=== PATIENT | female | born 1985 | race Caucasian/White ===

== ENCOUNTER 2020-12-10 17:01 | Inpatient (IN) ==
[2020-12-10] MEDS ORDERED: SODIUM CHLORIDE 0.9% 500 ML IV ONE (17:27)
[2020-12-10] MEDS ORDERED: dexAMETHasone**PF** 10 MG/ML VIAL IV ONE (17:27)
--- NOTE | 2020-12-10 17:32 | Emergency Department Note ---
Impression & Plan Hypoxia, COVID-19, Pneumonia ED Provider Note NAME: TEJINDER BELTARN AGE: 35 SEX: F : 1985 ARRIVES VIA: Walk-In INFORMANT: Patient ED PROVIDER(S): García Harkins DO CHIEF COMPLAINT: Shortness of breath HPI: Patient is a 35-year-old unvaccinated who presents the ER for shortness of breath associated with cough and loss of taste. She has had intermittent f shimon. Her significant other is positive for Covid. She has not been tested. She denies any belly pain but admits to diarrhea. No vomiting but does have some nausea. No dysuria urgency or frequency. No other exacerbating or remitting factors. ROS: See above HPI for pertinent positives & negatives. A total of 10 systems reviewed and were otherwise negative. PAST MEDICAL HISTORY:See Below PAST SURGICAL HISTORY:See Below FAMILY HISTORY:See Below SOCIAL HISTORY:See Below HOME MEDICATIONS:See Below ALLERGIES:See Below VITALS:See Below PHYSICAL EXAMINATION: GENERAL: Sitting up in bed, alert, slightly ill-appearing, cough EYE EXAM: normal conjunctiva. PERRL and EOM's grossly intact. OROPHARYNX: mask in place LUNGS: Clear to auscultation. Normal chest wall mechanics HEART: no murmurs, S1 normal and S2 normal ABDOMEN: abdomen soft, non-tender, normo-active bowel sounds, no masses, no rebound or guarding. UPPER EXTREMITIES: upper extremities are grossly normal. LOWER EXTREMITIES: No pitting edema. NEURO EXAM: Normal sensorium, cranial nerves II-XII grossly intact, normal speech, no gross weakness of arms, no gross weakness of legs. No drift. Finger to nose intact. Gross sensation intact. MEDICAL DECISION MAKING: Patient is a 35-year-old female who presents ER for upper respiratory symptoms. IV was established blood work was obtained. She is found to be hypoxic and placed on 2 L nasal cannula. She is febrile and tachycardic as well. Labs show no significant leukocytosis or anemia. BMP with mild hyponatremia. LFTs bilirubin and lipase is unremarkable. Troponin was negative. Patient was Covid positive. Chest x-ray with bilateral infiltrates. Patient was given Decadron, fluids and updated at bedside. She remained on nasal cannula. Discussed with hospitalist admitted for further work-up. Triage Nursing notes reviewed. Limited review of prior medical records performed Vital Signs: reviewed and remarkable for febrile, tachycardic and hypoxic Differential diagnosis: Differential diagnoses includes but is not limited to pneumonia, bronchitis, COPD/Asthma exacerbation, pneumothorax, pulmonary embolism, congestive heart failure, acute coronary syndrome ER treatment provided: See below Diagnostics interpreted by me: ECG: Sinus tachycardia rate of 115 Normal axis T wave inversion lead III QTC 415 Cardiac Monitoring: An order was placed for continuous cardiac monitoring. The monitor shows a rate of 110 with sinus rhythm. Laboratory studies: As stated above and show below. Imaging studies: Portable AP upright 1 view of the chest shows bilateral infiltrate Consultation(s): Discussed with Dr. Romero for further evaluation Procedures: none Critical Care: I have personally spent 32 minutes of critical care time in the direct management of this patient. This includes bedside care, interpretation of diagnostic studies, and testing, discussion with consultants, patient, and family members, and other required patient management activities. This 32 minutes is in excess of all separately billable procedures. Past Med/Surg History Social History Smoking Status: Never smoker Preferred Language: [place] Feels Safe at Home: Yes Allergies Allergies Allergy/AdvReac Type Severity Reaction Status Date / Time No Known Allergies Allergy Unverified 12/10/20 21:20 Home Meds Home Medications Medication Instructions Recorded Confirmed No Known Home Medications 12/10/20 12/10/20 Results & Data (ED) Vital Signs Vital Signs - 24 hr 12/10/20 17:05 12/10/20 18:02 12/10/20 21:04 Temperature 37.8 C H Temperature Source Temporal Artery Scan Pulse Rate 131 H Pulse Rate [Left] 114 H 101 H Pulse Rhythm [Left] Regular Pulse Strength [Left] Normal Respiratory Rate 24 24 Respiratory Effort / Characteristics Non-Labored Respiratory Depth Normal Blood Pressure 131/85 Blood Pressure [Right Arm] 126/87 135/83 Blood Pressure Mean 100 Blood Pressure Mean [Right Arm] 100 100 Blood Pressure Position [Right Arm] Lying Pulse Oximetry 94 97 94 Oxygen Delivery Method Nasal Cannula Nasal Cannula Nasal Cannula Oxygen Flow Rate 2 3 2 Sepsis Recent Fever Within 48 Hours Yes Sepsis New/Unexplained Change in Mental Status No Sepsis Action Taken by Nursing No Action Required Laboratory Data Result diagrams: 12/10/20 17:40 12/10/20 17:40 Lab Results 12/10/20 12/10/20 12/10/20 Range/Units 17:40 17:40 17:40 WBC 6.53 (4.8-10.8) K/uL RBC 4.53 (4.2-5.4) M/uL Hgb 14.4 (12.0-16.0) g/dL Hct 41.4 (37-47) % MCV 91.4 (80-100) fL MCH 31.8 (25-34) pg MCHC 34.8 (32-36) g/dL RDW Std Deviation 42.2 (36.4-46.3) fL RDW Coeff of Mary 12.6 (11.5-14.5) % Plt Count 188 (130-400) K/uL MPV 10.8 H (7.4-10.4) fL Immature Gran % (Auto) 0.3 % Neut % (Auto) 67.2 % Lymph % (Auto) 19.9 % [place] % (Auto) 12.4 % Eos % (Auto) 0.0 % Baso % (Auto) 0.2 % Neut # (Auto) 4.39 (1.4-6.5) K/uL Lymph # (Auto) 1.30 (1.2-3.4) K/uL [place] # (Auto) 0.81 H (0.11-0.59) K/uL Eos # (Auto) 0.00 (0-0.5) K/uL Baso # (Auto) 0.01 (0-0.2) K/uL Immature Gran # (Auto) 0.02 (0.00-0.02) K/uL APTT 26.5 (21.0-31.0) Seconds PTT Ratio 1.0 Sodium 132 L (136-145) mmol/L Potassium 3.7 (3.5-5.1) mmol/L Chloride 101 (98-107) mmol/L Carbon Dioxide 24 (21-32) mmol/L Anion Gap 7.0 (3-11) BUN 7 (7-18) mg/dl Creatinine 0.70 (0.6-1.2) mg/dl Est Cr Clr Drug Dosing 115.1 ml/min Est GFR ( Amer) 130.1 ml/min Est GFR (Non-Af Amer) 112.3 ml/min BUN/Creatinine Ratio 9.3 L (10-20) Glucose 101 H (70-99) mg/dl Calcium 8.7 (8.5-10.1) mg/dl Total Bilirubin 0.5 (0.2-1) mg/dl AST 39 H (15-37) U/L ALT 40 (12-78) U/L Alkaline Phosphatase 43 L (45-117) U/L Troponin I < 0.015 (0-0.045) ng/ml Total Protein 7.7 (6.4-8.2) gm/dl Albumin 3.1 L (3.4-5.0) gm/dl Globulin 4.6 H (2.5-4.0) gm/dl Albumin/Globulin Ratio 0.7 L (0.9-2) Lipase 342 (73-393) U/L COVID-19 Eval Order SARS-CoV-2 (PCR) (Negative) 12/10/20 12/10/20 Range/Units 17:45 17:45 WBC (4.8-10.8) K/uL RBC (4.2-5.4) M/uL Hgb (12.0-16.0) g/dL Hct (37-47) % MCV (80-100) fL MCH (25-34) pg MCHC (32-36) g/dL RDW Std Deviation (36.4-46.3) fL RDW Coeff of Mary (11.5-14.5) % Plt Count (130-400) K/uL MPV (7.4-10.4) fL Immature Gran % (Auto) % Neut % (Auto) % Lymph % (Auto) % [place] % (Auto) % Eos % (Auto) % Baso % (Auto) % Neut # (Auto) (1.4-6.5) K/uL Lymph # (Auto) (1.2-3.4) K/uL [place] # (Auto) (0.11-0.59) K/uL Eos # (Auto) (0-0.5) K/uL Baso # (Auto) (0-0.2) K/uL Immature Gran # (Auto) (0.00-0.02) K/uL APTT (21.0-31.0) Seconds PTT Ratio Sodium (136-145) mmol/L Potassium (3.5-5.1) mmol/L Chloride (98-107) mmol/L Carbon Dioxide (21-32) mmol/L Anion Gap (3-11) BUN (7-18) mg/dl Creatinine (0.6-1.2) mg/dl Est Cr Clr Drug Dosing ml/min Est GFR ( Amer) ml/min Est GFR (Non-Af Amer) ml/min BUN/Creatinine Ratio (10-20) Glucose (70-99) mg/dl Calcium (8.5-10.1) mg/dl Total Bilirubin (0.2-1) mg/dl AST (15-37) U/L ALT (12-78) U/L Alkaline Phosphatase (45-117) U/L Troponin I (0-0.045) ng/ml Total Protein (6.4-8.2) gm/dl Albumin (3.4-5.0) gm/dl Globulin (2.5-4.0) gm/dl Albumin/Globulin Ratio (0.9-2) Lipase (73-393) U/L COVID-19 Eval Order Covid19 at [facility] SARS-CoV-2 (PCR) POSITIVE A* (Negative) Administered Medications Discontinued Medications Dexamethasone Sodium Phosphate (DexamethasonePf 10 Mg/Ml Vial) 8 mg IV NOW ONE Stop: 12/10/20 17:28 Last Admin: 12/10/20 17:46 Dose: 8 mg Documented by: [id number] Sodium Chloride (Nss) 500 mls @ 999 mls/hr IV .Q31M ONE Stop: 12/10/20 17:57 Last Infusion: 12/10/20 20:23 Dose: 0 mls/hr Documented by: [id number] Admin: 12/10/20 17:50 Dose: 999 mls/hr Documented by: [id number] Imaging Data Radiologist's Impression: Chest X-Ray 12/10/20 17:26 XR chest 1V portable HISTORY: Atypical Chest Pain COMPARISON: None. FINDINGS: No pneumothorax. No pleural effusions. The cardiac silhouette is normal in size. There are patchy bilateral airspace opacities most mass within the mid to lower lung zones. This likely represents a viral pneumonia. IMPRESSION: Patchy bilateral airspace opacities. This likely represents a viral pneumonia. ACT 112: Negative or not required by law. Electronically signed by: Anup Dyson M.D. 12/10/2020 6:17 PM Discharge Plan Visit Data Chief Complaint: Shortness of Breath/Dyspnea Stated Complaint: SHORTNESS OF BREATH, COUGH ED Provider: García Harkins Discharge Problem: Hypoxia, COVID-19, Pneumonia Forms Stand Alone Forms: M.dot Prescriptions Prescriptions: No Action No Known Home Medications RF: 0 Referrals Referrals: PCP,NO [Physician] - Discharge Problem: Pneumonia Qualifiers: Pneumonia type: due to unspecified organism Laterality: bilateral Lung location: unspecified part of lung Qualified Code(s): J18.9 - Pneumonia, unspecified organism
[2020-12-10 18:08] LABS: Hematocrit (blood only) 41.4 % (37-47); Hemoglobin 14.4 g/dL (12.0-16.0); Mean Corpuscular Hemoglobin 31.8 pg (25-34); Mean Corpuscular Hgb Conc 34.8 g/dL (32-36); Mean Corpuscular Volume 91.4 fL (80-100); Mean Platelet Volume 10.8 fL (7.4-10.4); Platelet Count 188 K/uL (130-400); RDW Coefficient of Variation 12.6 % (11.5-14.5); RDW Standard Deviation 42.2 fL (36.4-46.3); Red Blood Count 4.53 M/uL (4.2-5.4); White Blood Count 6.53 K/uL (4.8-10.8)
--- NOTE | 2020-12-10 18:18 | XRay Report ---
XR chest 1V portable HISTORY: Atypical Chest Pain COMPARISON: None. FINDINGS: No pneumothorax. No pleural effusions. The cardiac silhouette is normal in size. There are patchy bilateral airspace opacities most mass within the mid to lower lung zones. This likely represe nts a viral pneumonia. IMPRESSION: Patchy bilateral airspace opacities. This likely represents a viral pneumonia. ACT 112: Negative or not required by law. Electronically signed by: Anup Dyson M.D. 12/10/2020 6:17 PM
[2020-12-10 18:23] LABS: Partial Thromboplastin Time 26.5 Seconds (21.0-31.0)
[2020-12-10 18:39] LABS: Alanine Aminotransferase 40 U/L (12-78); Albumin Level 3.1 gm/dl (3.4-5.0); Aspartate Aminotransferase 39 U/L (15-37); BUN Creatinine Ratio 9.3 (10-20); Blood Urea Nitrogen 7 mg/dl (7-18); Calcium 8.7 mg/dl (8.5-10.1); Carbon Dioxide 24 mmol/L (21-32); Chloride 101 mmol/L (98-107); Creatinine Clr Calc Pharmacy 115.1 ml/min; Est GFR (African American) 130.1 ml/min; Est GFR (Non-African American) 112.3 ml/min; Glucose 101 mg/dl (70-99); Lipase 342 U/L (73-393); Potassium 3.7 mmol/L (3.5-5.1); Sodium 132 mmol/L (136-145)
[2020-12-10 18:44] LABS: Albumin Globulin Ratio 0.7 (0.9-2); Alkaline Phosphatase 43 U/L (45-117); Bilirubin,Total 0.5 mg/dl (0.2-1); Globulin 4.6 gm/dl (2.5-4.0); Total Protein 7.7 gm/dl (6.4-8.2); Troponin I < 0.015 ng/ml (0-0.045)
[2020-12-10 18:47] LABS: Basophils # (auto) 0.01 K/uL (0-0.2); Basophils % (auto) 0.2 %; Immature Granulocytes # (auto) 0.02 K/uL (0.00-0.02); Immature Granulocytes % (auto) 0.3 %; Lymphocytes % (auto) 19.9 %; Monocytes # (auto) 0.81 K/uL (0.11-0.59); Monocytes % (auto) 12.4 %; Neutrophils # (auto) 4.39 K/uL (1.4-6.5); Neutrophils % (auto) 67.2 %
[2020-12-10] MEDS ORDERED: REMDESIVIR 200 MG in SODIUM CHLORIDE 0.9% 210 ML IV STA (21:34)
--- NOTE | 2020-12-10 22:25 | History and Physical Report ---
DATE OF NOTE: 12/10/2020. CHIEF COMPLAINT: COVID pneumonia. HISTORY OF PRESENT ILLNESS: This is a 35-year-old female with past medical history significant for chronic rhinitis, history of anxiety and depression, currently not taking any medication, presents with COVID symptoms. Patient's significant other was tested COVID positive and she started having symptoms last Monday with headache, cough, shortness of breath, on and off fevers and she had few episodes of diarrhea. Today she was checking her pulse ox at home and her oxygen was ranging from 83-89% when she decided to come to the ER. In the ER, she was saturating 88% on room air, on 2 liters she was saturating 94%, currently resting comfortably. Has cough. Denies any chest pain, no blurred visions, some ear discomfort. She has some runny nose. Appetite is very poor. No difficulty swallowing. Was nauseous. No abdominal pain. No rash. No swelling in the legs. ALLERGIES: No known drug allergies. PAST MEDICAL HISTORY: As mentioned above. PAST SURGICAL HISTORY: Has molars removed. MEDICATIONS: None. FAMILY HISTORY: Paternal grandfather had heart disorder in 40s or 50s. Maternal grandfather had high cholesterol. Aunt has breast cancer. SOCIAL HISTORY: , no smoking, alcohol rare. REVIEW OF SYSTEMS: As per HPI. Rest of the review of systems is negative. PHYSICAL EXAMINATION: GENERAL: The patient is of moderate build, not in acute distress. VITAL SIGNS: Temperature T-max 37.8, pulse 101, respiratory rate 24, blood pressure 135/83, oxygen 88% on room air, 94% on 2 liters. HEENT: Pupils equal, round and reactive to light. Oral mucosa moist. NECK: No JVD. No neck masses seen. CARDIOVASCULAR: S1 and S2 heard. Regular rate and rhythm. No murmur, no gallop. RESPIRATORY SYSTEM: Normal AP diameter. No accessory muscle use. No wheezing, no crackles. ABDOMEN: Soft, bowel sounds present, nontender, no distention. CENTRAL NERVOUS SYSTEM: Cranial nerves II-XII grossly intact, nonfocal. EXTREMITIES: No edema, no erythema. LABORATORY DATA: WBC 6.4, hemoglobin 14.4, hematocrit 41.4, platelets 188. APTT 26.5, PTT 1. Sodium 132, potassium 3.7, chloride 101, bicarbonate 24, BUN 37, creatinine 0.7, serum glucose 101, calcium 8.7, total bilirubin 0.5, AST 39, ALT 40, alkaline phosphatase 43. Troponin I less than 0.015. Lipase 3.2. SARS-CoV-2 PCR positive. IMAGING DATA: Chest x-ray had patchy bilateral airspace opacities, this likely represents viral pneumonia. EKG: Sinus tachycardia at rate of 115,possible left atrial enlargement. ASSESSMENT AND PLAN: This is a 35-year-old female who presents with COVID pneumonia. 1. COVID pneumonia. Hypoxic at 88% on room air, requiring 2 liters of oxygen. Meets criteria for remdesivir and steroids, which will be started. Follow remdesivir labs. Follow the CRP in a.m. inhalers p.r.n. and closely monitor in the med tele. 2. h x of anxiety currently not on meds. Takes BuSpar once in a while 3. Deep venous thrombosis prophylaxis with Lovenox. DISPOSITION: Closely monitor in med tele. PT/OT prior to discharge. Social service to help with discharge planning. Job ID: [id number] [facility]
[2020-12-10] MEDS ORDERED: LEVALBUTEROL TARTRATE 15 GM HFA.AER.AD INH PRN (23:37)
[2020-12-10] MEDS ORDERED: SODIUM CHLORIDE 0.9% 1000ML 1,000 ML IV SCH (23:37)
[2020-12-10] MEDS ORDERED: ACETAMINOPHEN 325 MG TAB PO PRN (23:37)
[2020-12-10] MEDS ORDERED: ONDANSETRON INJ 2 MG/ML 2 ML VIAL IV PRN (23:37)
[2020-12-10] MEDS ORDERED: NITROGLYCERIN SL 0.4 MG/TAB TAB SL PRN (23:37)
[2020-12-11] MEDS: SODIUM CHLORIDE 0.9% 10ML FLUSH IV SCH ×2 (02:03→22:34)
[2020-12-11 05:51] LABS: Basophils # (auto) 0.01 K/uL (0-0.2); Basophils % (auto) 0.2 %; Hematocrit (blood only) 39.7 % (37-47); Hemoglobin 13.6 g/dL (12.0-16.0); Lymphocytes # (auto) 1.26 K/uL (1.2-3.4); Lymphocytes % (auto) 31.3 %; Mean Corpuscular Hemoglobin 31.4 pg (25-34); Mean Corpuscular Hgb Conc 34.3 g/dL (32-36); Mean Corpuscular Volume 91.7 fL (80-100); Mean Platelet Volume 10.3 fL (7.4-10.4); Monocytes # (auto) 0.61 K/uL (0.11-0.59); Monocytes % (auto) 15.1 %; Neutrophils # (auto) 2.15 K/uL (1.4-6.5); Neutrophils % (auto) 53.4 %; Platelet Count 193 K/uL (130-400); RDW Coefficient of Variation 12.5 % (11.5-14.5); RDW Standard Deviation 42.4 fL (36.4-46.3); Red Blood Count 4.33 M/uL (4.2-5.4); White Blood Count 4.03 K/uL (4.8-10.8)
[2020-12-11 06:22] LABS: Albumin Level 2.7 gm/dl (3.4-5.0); BUN Creatinine Ratio 15.4 (10-20); Bilirubin Direct 0.1 mg/dl (0-0.2); Calcium 8.2 mg/dl (8.5-10.1); Creatinine Clr Calc Pharmacy 152.1 ml/min; Est GFR (African American) 142.6 ml/min; Magnesium 2.5 mg/dl (1.8-2.4); Potassium 4.1 mmol/L (3.5-5.1)
[2020-12-11 06:25] LABS: Bilirubin,Total 0.4 mg/dl (0.2-1); C Reactive Protein 5.11 mg/dl (0-0.29)
[2020-12-11] MEDS: FLUTICASONE FUROATE 100MCG 14 PUFFS/INHALER INH SCH (09:21)
[2020-12-11] MEDS: ENOXAPARIN INJ 40 MG/0.4 ML SYR SQ SCH (09:21)
[2020-12-11] MEDS: dexAMETHasone 6 MG in SYRINGE 0 ML IV SCH (09:28)
--- NOTE | 2020-12-11 15:30 | Electrocardiogram Report ---
Test Reason : Blood Pressure : / mmHG Vent. Rate : 115 BPM Atrial Rate : 115 BPM P-R Int : 120 ms QRS Dur : 082 ms QT Int : 300 ms P-R-T Axes : 063 033 024 degrees QTc Int : 415 ms Sinus tachycardia Possible Left atrial enlargement Borderline ECG No previous ECGs available Confirmed by Miguelito Calhoun ([id number]) on 12/11/2020 3:30:13 PM Referred By: REFERRED SELF Confirmed By:Miguelito Calhoun
--- NOTE | 2020-12-11 15:32 | Hospitalist Progress Note ---
Date of Service December 11, 2020 Assessment & Plan (1) COVID-19: Plan: Did not receive any Covid vaccine On and off symptoms of fever and diarrhea with desaturation at home Diagnosed to have COVID-19 positive Has been on dexamethasone and remdesivir Requiring about 2 L of oxygen to maintain saturation Noted to have diarrhea this morning we will get stool for C. difficile (2) Pneumonia: Plan: Secondary to COVID-19 Treatment is as above (3) Anxiety with depression: Plan: Has symptoms of anxiety and depression Nothing acute at this time DVT prophylaxis Subcu Lovenox CODE STATUS Full Admission and Anticipated Discharge Date Admission Date: December 10, 2020 Subjective 12/11/2020 The patient was seen and examined in medical telemetry unit and in the Covid room She has been feeling a little better today Has had diarrhea x2, denies any abdominal pain, nausea no vomiting Review of Systems Review of Systems: All systems reviewed and are unremarkable except as noted below Respiratory: Minimal shortness of breath at rest Physical Exam Physical Exam: Lying in bed comfortably Constitutional: well developed, well nourished, + ill appearing and + obese Eyes: PERRL, conjunctivae normal, anicteric sclerae ENMT: external ear and nose normal, oropharynx normal Neck: trachea midline, no thyromegaly Respiratory: + respiratory distress (Minimal shortness of breath at rest) and + cough Auscultation: + diminished lung sounds Cardiovascular: Rate/Rhythm: regular rate and regular rhythm; not tachycardic Heart Sounds: normal S1 and normal S2; no murmur Extremities: no edema Gastrointestinal (Abdomen): Inspection/Auscultation: normal bowel sounds; abdomen not distended Percussion/Palpation: abdomen soft; abdomen nontender Musculoskeletal: No acute arthritis in any joint Neurologic: Alert, awake and oriented x3. No focal sensory no motor deficit appreciated Results & Data Results & Data ([facility]) Vital Signs (Past 12 Hours) Vital Signs Temp Pulse Pulse Resp BP Pulse Ox 12/11/20 12:00 36.8 C 95 H 16 123/83 93 12/11/20 08:00 37.1 C 94 H 24 114/73 90 12/11/20 06:20 80 Laboratory Results Short CBC 12/10/20 12/11/20 Range/Units 17:40 05:33 WBC 6.53 4.03 L (4.8-10.8) K/uL Hgb 14.4 13.6 (12.0-16.0) g/dL Hct 41.4 39.7 (37-47) % Plt Count 188 193 (130-400) K/uL BMP 12/10/20 12/11/20 17:40 05:33 Sodium 132 L 136 Potassium 3.7 4.1 Chloride 101 109 H Carbon Dioxide 24 23 BUN 7 8 Creatinine 0.70 0.53 L Glucose 101 H 126 H Calcium 8.7 8.2 L Cardiac Enzymes 12/10/20 Range/Units 17:40 Troponin I < 0.015 (0-0.045) ng/ml Liver Function 12/10/20 12/11/20 Range/Units 17:40 05:33 Total Bilirubin 0.5 0.4 (0.2-1) mg/dl Direct Bilirubin 0.1 (0-0.2) mg/dl AST 39 H 35 (15-37) U/L ALT 40 38 (12-78) U/L Alkaline Phosphatase 43 L 37 L (45-117) U/L Albumin 3.1 L 2.7 L (3.4-5.0) gm/dl Medications Administered Current Inpatient Medications Acetaminophen (Acetaminophen 325 Mg Tab) 650 mg PO Q4H PRN PRN Reason: Pain or Fever Stop: 01/09/21 23:36 Enoxaparin Sodium (Enoxaparin Inj 40 Mg/0.4 Ml Syr) 40 mg SQ Q24H KAIA Stop: 01/10/21 08:59 Last Admin: 12/11/20 09:21 Dose: 40 mg Documented by: Fluticasone Furoate (Fluticasone Furoate 100mcg 14 Puffs/Inhaler) 1 puffs INH DAILY KAIA Stop: 01/10/21 08:59 Last Admin: 12/11/20 09:21 Dose: 1 puffs Documented by: Remdesivir 100 mg/ Sodium (Chloride) 250 mls @ 250 mls/hr IV Q24H KAIA; Protocol Stop: 12/14/20 20:59 Dexamethasone 6 mg/ Syringe 1.5 mls @ 1 mls/min IV DAILY KAIA Stop: 12/21/20 08:59 Last Admin: 12/11/20 09:28 Dose: 1 mls/min Documented by: Levalbuterol HCl (Levalbuterol Tartrate 15 Gm Hfa.Aer.Ad) 2 puffs INH QID PRN PRN Reason: Shortness Of Breath Or Wheezin Stop: 01/09/21 23:36 Nitroglycerin (Nitroglycerin Sl 0.4 Mg/Tab Tab) 0.4 mg SL UD PRN PRN Reason: Chest Pain Stop: 01/09/21 23:36 Ondansetron HCl (Ondansetron Inj 2 Mg/Ml 2 Ml Vial) 4 mg IV Q6H PRN PRN Reason: Nausea Stop: 01/09/21 23:36 Sodium Chloride (Sodium Chloride 0.9% 10ml Flush) 30 ml IV Q24H KAIA Stop: 12/14/20 23:38 Last Admin: 12/11/20 02:03 Dose: 30 ml Documented by: (1) Pneumonia Laterality: bilateral Lung location: unspecified part of lung Pneumonia type: due to unspecified organism Qualified Code(s): J18.9 - Pneumonia, unspecified organism
[2020-12-11] MEDS ORDERED: FUROSEMIDE 40 MG in SYRINGE 0 ML IV SCH (15:45)
[2020-12-11] MEDS: REMDESIVIR 100 MG in SODIUM CHLORIDE 0.9% 230 ML IV SCH (21:05)
[2020-12-12 07:07] LABS: Basophils # (auto) 0.01 K/uL (0-0.2); Basophils % (auto) 0.1 %; Hematocrit (blood only) 40.6 % (37-47); Hemoglobin 14.2 g/dL (12.0-16.0); Immature Granulocytes # (auto) 0.02 K/uL (0.00-0.02); Immature Granulocytes % (auto) 0.2 %; Lymphocytes # (auto) 1.85 K/uL (1.2-3.4); Mean Corpuscular Hemoglobin 31.7 pg (25-34); Mean Corpuscular Volume 90.6 fL (80-100); Mean Platelet Volume 11.1 fL (7.4-10.4); Monocytes # (auto) 1.36 K/uL (0.11-0.59); Monocytes % (auto) 13.2 %; Neutrophils # (auto) 7.04 K/uL (1.4-6.5); Neutrophils % (auto) 68.5 %; Platelet Count 259 K/uL (130-400); RDW Coefficient of Variation 12.6 % (11.5-14.5); Red Blood Count 4.48 M/uL (4.2-5.4); White Blood Count 10.28 K/uL (4.8-10.8)
[2020-12-12 07:28] LABS: BUN Creatinine Ratio 25.4 (10-20); Calcium 8.5 mg/dl (8.5-10.1); Creatinine Clr Calc Pharmacy 146.3 ml/min; Est GFR (African American) 140.8 ml/min; Est GFR (Non-African American) 121.5 ml/min; Potassium 3.5 mmol/L (3.5-5.1)
[2020-12-12] MEDS: FLUTICASONE FUROATE 100MCG 14 PUFFS/INHALER INH SCH (08:22)
[2020-12-12] MEDS: ENOXAPARIN INJ 40 MG/0.4 ML SYR SQ SCH (08:22)
[2020-12-12] MEDS: dexAMETHasone 6 MG in SYRINGE 0 ML IV SCH (08:23)
[2020-12-12] MEDS ORDERED: POTASSIUM CHLORIDE CRTAB 20 MEQ TABCR PO STA (11:50)
[2020-12-12] MEDS ORDERED: FUROSEMIDE 40 MG in SYRINGE 0 ML IV ONE (12:30)
--- NOTE | 2020-12-12 14:22 | Hospitalist Progress Note ---
Date of Service December 12, 2020 Assessment & Plan (1) COVID-19: Plan: Did not receive any Covid vaccine On and off symptoms of fever and diarrhea with desaturation at home Diagnosed to have COVID-19 positive Has been on dexamethasone and remdesivir Requiring about 2 L of oxygen to maintain saturation No more diarrhea Feels better but requires about 3 L of oxygen to maintain saturation Complains of cough-cough suppressants given (2) Pneumonia: Plan: Secondary to COVID-19 Treatment is as above (3) Anxiety with depression: Plan: Has symptoms of anxiety and depression Nothing acute at this time DVT prophylaxis Subcu Lovenox CODE STATUS Full Admission and Anticipated Discharge Date Admission Date: December 10, 2020 Subjective 12/11/2020 The patient was seen and examined in medical telemetry unit and in the Covid room She has been feeling a little better today Has had diarrhea x2, denies any abdominal pain, nausea no vomiting 12/12/2020 The patient was seen and examined in medical telemetry unit and in Covid room She has been feeling a little better and is still requiring about 3 L of oxygen to maintain saturation She has cough Review of Systems Review of Systems: All systems reviewed and are unremarkable except as noted below Respiratory: Minimal shortness of breath at rest Physical Exam Physical Exam: Lying in bed comfortably Constitutional: well developed, well nourished, + ill appearing and + obese Eyes: PERRL, conjunctivae normal, anicteric sclerae ENMT: external ear and nose normal, oropharynx normal Neck: trachea midline, no thyromegaly Respiratory: + respiratory distress (Minimal shortness of breath at rest) and + cough Auscultation: + diminished lung sounds Cardiovascular: Rate/Rhythm: regular rate and regular rhythm; not tachycardic Heart Sounds: normal S1 and normal S2; no murmur Extremities: no edema Gastrointestinal (Abdomen): Inspection/Auscultation: normal bowel sounds; abdomen not distended Percussion/Palpation: abdomen soft; abdomen nontender Musculoskeletal: No acute arthritis in any joint Neurologic: Alert, awake and oriented x3. Generally weak but no focal sensory or motor deficit appreciated Results & Data Results & Data ([facility]) Vital Signs (Past 12 Hours) Vital Signs Temp Pulse Resp BP Pulse Ox 12/12/20 12:00 37 C 94 H 16 114/80 94 12/12/20 08:00 87 22 94 12/12/20 07:30 36.9 C 82 16 113/76 93 12/12/20 02:43 37.4 C 93 H 18 118/79 90 Laboratory Results Short CBC 12/12/20 Range/Units 06:04 WBC 10.28 (4.8-10.8) K/uL Hgb 14.2 (12.0-16.0) g/dL Hct 40.6 (37-47) % Plt Count 259 (130-400) K/uL BMP 12/12/20 06:04 Sodium 137 Potassium 3.5 Chloride 106 Carbon Dioxide 23 BUN 14 D Creatinine 0.55 L Glucose 104 H Calcium 8.5 Liver Function 12/12/20 Range/Units 06:04 AST 34 (15-37) U/L ALT 44 (12-78) U/L Medications Administered Current Inpatient Medications Acetaminophen (Acetaminophen 325 Mg Tab) 650 mg PO Q4H PRN PRN Reason: Pain or Fever Stop: 01/09/21 23:36 Enoxaparin Sodium (Enoxaparin Inj 40 Mg/0.4 Ml Syr) 40 mg SQ Q24H KAIA Stop: 01/10/21 08:59 Last Admin: 12/12/20 08:22 Dose: 40 mg Documented by: Fluticasone Furoate (Fluticasone Furoate 100mcg 14 Puffs/Inhaler) 1 puffs INH DAILY KAIA Stop: 01/10/21 08:59 Last Admin: 12/12/20 08:22 Dose: 1 puffs Documented by: Guaifenesin (Guaifenesin 600 Mg Tabcr) 1,200 mg PO Q12 KAIA Stop: 01/11/21 20:59 Remdesivir 100 mg/ Sodium (Chloride) 250 mls @ 250 mls/hr IV Q24H KAIA; Protocol Stop: 12/14/20 20:59 Last Infusion: 12/11/20 22:21 Dose: Infused Documented by: Dexamethasone 6 mg/ Syringe 1.5 mls @ 1 mls/min IV DAILY KAIA Stop: 12/21/20 08:59 Last Admin: 12/12/20 08:23 Dose: 1 mls/min Documented by: Levalbuterol HCl (Levalbuterol Tartrate 15 Gm Hfa.Aer.Ad) 2 puffs INH QID PRN PRN Reason: Shortness Of Breath Or Wheezin Stop: 01/09/21 23:36 Last Admin: 12/12/20 07:56 Dose: 2 puffs Documented by: Nitroglycerin (Nitroglycerin Sl 0.4 Mg/Tab Tab) 0.4 mg SL UD PRN PRN Reason: Chest Pain Stop: 01/09/21 23:36 Ondansetron HCl (Ondansetron Inj 2 Mg/Ml 2 Ml Vial) 4 mg IV Q6H PRN PRN Reason: Nausea Stop: 01/09/21 23:36 Sodium Chloride (Sodium Chloride 0.9% 10ml Flush) 30 ml IV Q24H KAIA Stop: 12/14/20 23:38 Last Admin: 12/11/20 22:34 Dose: 30 ml Documented by: (1) Pneumonia Laterality: bilateral Lung location: unspecified part of lung Pneumonia type: due to unspecified organism Qualified Code(s): J18.9 - Pneumonia, unspecified organism
[2020-12-12] MEDS: REMDESIVIR 100 MG in SODIUM CHLORIDE 0.9% 230 ML IV SCH (21:47)
[2020-12-12] MEDS: guaiFENesin 600 MG TABCR PO SCH (21:50)
[2020-12-12] MEDS: SODIUM CHLORIDE 0.9% 10ML FLUSH IV SCH (23:03)
--- NOTE | 2020-12-13 07:37 | XRay Report ---
XR chest 1V portable CLINICAL HISTORY: Pneumonia COMPARISON STUDY: Chest radiograph December 10, 2020. FINDINGS: Lung volumes are mildly diminished. Patchy bilateral airspace opacities are similar to prio r exam. There is no pneumothorax or pleural effusion. Cardiac size is normal. Mediastinal contours ar e normal. There is no evidence for pulmonary edema. IMPRESSION: No significant change in bilateral airspace opacities suggestive of viral pneumonia. ACT 112: Negative or not required by law. Electronically signed by: Emanuel Whitten M.D. 12/13/2020 7:35 AM
[2020-12-13 08:00] LABS: BUN Creatinine Ratio 28.6 (10-20); C Reactive Protein 1.43 mg/dl (0-0.29); Calcium 8.5 mg/dl (8.5-10.1); Creatinine Clr Calc Pharmacy 129.6 ml/min; Est GFR (African American) 135.4 ml/min; Est GFR (Non-African American) 116.8 ml/min
[2020-12-13] MEDS: guaiFENesin 600 MG TABCR PO SCH ×2 (08:26→21:00)
[2020-12-13] MEDS: FLUTICASONE FUROATE 100MCG 14 PUFFS/INHALER INH SCH (08:26)
[2020-12-13] MEDS: ENOXAPARIN INJ 40 MG/0.4 ML SYR SQ SCH (08:27)
[2020-12-13] MEDS: dexAMETHasone 6 MG in SYRINGE 0 ML IV SCH (08:31)
[2020-12-13] MEDS ORDERED: FUROSEMIDE 40 MG in SYRINGE 0 ML IV ONE (13:45)
--- NOTE | 2020-12-13 15:52 | Hospitalist Progress Note ---
Date of Service December 13, 2020 Assessment & Plan (1) COVID-19: Plan: Did not receive any Covid vaccine On and off symptoms of fever and diarrhea with desaturation at home Diagnosed to have COVID-19 positive Has been on dexamethasone and remdesivir Requiring about 2 L of oxygen to maintain saturation No more diarrhea Feels better but requires about 3 L of oxygen to maintain saturation Complains of cough-cough suppressants given Clinically a little better still gets short of breath with minimal exertion with more cough Chest x-ray did show minimal improvement yesterday We will continue current medications and finish the course of remdesivir tomorrow Requested PT evaluation and possible discharge tomorrow following a to do steps O2 saturation test Received another dose of Lasix today (2) Pneumonia: Plan: Secondary to COVID-19 Treatment is as above (3) Anxiety with depression: Plan: Has symptoms of anxiety and depression Nothing acute at this time DVT prophylaxis Subcu Lovenox CODE STATUS Full Admission and Anticipated Discharge Date Admission Date: December 10, 2020 Subjective 12/11/2020 The patient was seen and examined in medical telemetry unit and in the Covid room She has been feeling a little better today Has had diarrhea x2, denies any abdominal pain, nausea no vomiting 12/12/2020 The patient was seen and examined in medical telemetry unit and in Covid room She has been feeling a little better and is still requiring about 3 L of oxygen to maintain saturation She has cough 12/13/2020 The patient was seen and examined in medical telemetry unit and in the Covid room She has been feeling better at rest but gets easily short of breath with any ambulation Has significant cough Review of Systems Review of Systems: All systems reviewed and are unremarkable except as noted below Respiratory: Minimal shortness of breath at rest Physical Exam Physical Exam: Lying in bed comfortably with moderate cough and shortness of breath Constitutional: well developed, well nourished, + ill appearing and + obese Eyes: PERRL, conjunctivae normal, anicteric sclerae ENMT: external ear and nose normal, oropharynx normal Neck: trachea midline, no thyromegaly Respiratory: + respiratory distress (Minimal shortness of breath at rest) and + cough Auscultation: + diminished lung sounds Cardiovascular: Rate/Rhythm: regular rate and regular rhythm; not tachycardic Heart Sounds: normal S1 and normal S2; no murmur Extremities: no edema Gastrointestinal (Abdomen): Inspection/Auscultation: normal bowel sounds; abdomen not distended Percussion/Palpation: abdomen soft; abdomen nontender Musculoskeletal: No acute arthritis in any joint Neurologic: Alert, awake and oriented x3 Results & Data Results & Data ([facility]) Vital Signs (Past 12 Hours) Vital Signs Temp Pulse Pulse Resp BP Pulse Ox 12/13/20 15:00 36.7 C 81 20 120/78 95 12/13/20 11:30 36.6 C 83 20 116/84 95 12/13/20 07:47 36.9 C 85 20 118/79 92 12/13/20 07:16 69 12/13/20 03:56 36.7 C 80 20 115/78 91 Laboratory Results BMP 12/13/20 12/13/20 07:02 08:12 Sodium 136 Potassium 4.0 Chloride 106 Carbon Dioxide 25 BUN 18 Creatinine 0.62 Glucose 98 Calcium 8.5 Liver Function 12/13/20 12/13/20 Range/Units 07:02 08:12 AST 27 (15-37) U/L ALT 46 (12-78) U/L Medications Administered Current Inpatient Medications Acetaminophen (Acetaminophen 325 Mg Tab) 650 mg PO Q4H PRN PRN Reason: Pain or Fever Stop: 01/09/21 23:36 Enoxaparin Sodium (Enoxaparin Inj 40 Mg/0.4 Ml Syr) 40 mg SQ Q24H [facility] Stop: 01/10/21 08:59 Last Admin: 12/13/20 08:27 Dose: 40 mg Documented by: Fluticasone Furoate (Fluticasone Furoate 100mcg 14 Puffs/Inhaler) 1 puffs INH DAILY [facility] Stop: 01/10/21 08:59 Last Admin: 12/13/20 08:26 Dose: 1 puffs Documented by: Guaifenesin (Guaifenesin 600 Mg Tabcr) 1,200 mg PO Q12 [facility] Stop: 01/11/21 20:59 Last Admin: 12/13/20 08:26 Dose: 1,200 mg Documented by: Remdesivir 100 mg/ Sodium (Chloride) 250 mls @ 250 mls/hr IV Q24H [facility]; Protocol Stop: 12/14/20 20:59 Last Infusion: 12/13/20 00:00 Dose: Infused Documented by: Dexamethasone 6 mg/ Syringe 1.5 mls @ 1 mls/min IV DAILY [facility] Stop: 12/21/20 08:59 Last Admin: 12/13/20 08:31 Dose: 1 mls/min Documented by: Levalbuterol HCl (Levalbuterol Tartrate 15 Gm Hfa.Aer.Ad) 2 puffs INH QID PRN PRN Reason: Shortness Of Breath Or Wheezin Stop: 01/09/21 23:36 Last Admin: 12/12/20 07:56 Dose: 2 puffs Documented by: Nitroglycerin (Nitroglycerin Sl 0.4 Mg/Tab Tab) 0.4 mg SL UD PRN PRN Reason: Chest Pain Stop: 01/09/21 23:36 Ondansetron HCl (Ondansetron Inj 2 Mg/Ml 2 Ml Vial) 4 mg IV Q6H PRN PRN Reason: Nausea Stop: 01/09/21 23:36 Sodium Chloride (Sodium Chloride 0.9% 10ml Flush) 30 ml IV Q24H [facility] Stop: 12/14/20 23:38 Last Admin: 12/12/20 23:03 Dose: 30 ml Documented by: (1) Pneumonia Laterality: bilateral Lung location: unspecified part of lung Pneumonia type: due to unspecified organism Qualified Code(s): J18.9 - Pneumonia, unspecified organism
[2020-12-13] MEDS: BENZONATATE 100 MG CAPSULE PO SCH (20:57)
[2020-12-13] MEDS: REMDESIVIR 100 MG in SODIUM CHLORIDE 0.9% 230 ML IV SCH (21:01)
[2020-12-13] MEDS: SODIUM CHLORIDE 0.9% 10ML FLUSH IV SCH (22:15)
[2020-12-14 07:21] LABS: BUN Creatinine Ratio 28.4 (10-20); Calcium 8.5 mg/dl (8.5-10.1); Creatinine Clr Calc Pharmacy 130.8 ml/min; Est GFR (African American) 136.1 ml/min; Est GFR (Non-African American) 117.5 ml/min; Potassium 3.7 mmol/L (3.5-5.1)
[2020-12-14] MEDS: dexAMETHasone 6 MG in SYRINGE 0 ML IV SCH (08:14)
[2020-12-14] MEDS: FLUTICASONE FUROATE 100MCG 14 PUFFS/INHALER INH SCH (08:14)
[2020-12-14] MEDS: guaiFENesin 600 MG TABCR PO SCH (08:14)
[2020-12-14] MEDS: BENZONATATE 100 MG CAPSULE PO SCH ×2 (08:14→14:39)
[2020-12-14] MEDS: ENOXAPARIN INJ 40 MG/0.4 ML SYR SQ SCH (08:14)
--- NOTE | 2020-12-14 12:06 | Hospitalist Progress Note ---
Date of Service December 14, 2020 Assessment & Plan (1) COVID-19: Plan: COVID-19 pneumonia Hypoxia Chest x-ray:Patchy bilateral airspace opacities. This likely represents a viral pneumonia. Did not receive any Covid vaccine Continue Dexamethasone and remdesivir course Day #5 Saturating 94% on 1 L of nasal cannula Continue pulmonary hygiene Lasix PRN 2 step: Did not qualify for oxygen (2) Pneumonia: Plan: Management as above Admission and Anticipated Discharge Date Admission Date: December 10, 2020 Subjective Patient is seen and examined at bedside States feeling much better today Reports only minimal cough Denies dyspnea, dizziness, nausea, abd pain Offers no other complaints Review of Systems Review of Systems: All systems reviewed & are unremarkable except as noted in Subjective Physical Exam Physical Exam: Physical Exam: Vitals signs as noted above General Appearance:Moderately built and nourished, no apparent distress Head: normocephalic, Atraumatic Eyes: normal inspection, EOMI Neck: supple, Trachea midline Respiratory/Chest: Decreased breath sounds, CTA, No accessory muscle use Cardiovascular: S1, S2, No murmur Abdomen/GI:Soft, Non tender, Bowel sounds present Extremities/Musculoskelatal:normal inspection, no edema Neurologic/Psych:AAOX3, grossly no focal neurological deficits Skin: normal color, warm Results & Data Results & Data ([facility]) Vital Signs (Past 12 Hours) Vital Signs Temp Pulse Pulse Resp BP BP Pulse Ox 12/14/20 11:36 36.6 C 86 18 106/73 94 12/14/20 10:07 107 H 18 110/78 93 12/14/20 10:06 92 H 18 117/83 93 12/14/20 07:35 90 12/14/20 07:09 91 12/14/20 07:08 36.5 C 89 20 112/79 89 L 12/14/20 03:08 36.8 C 86 16 106/67 93 Laboratory Results BMP 12/14/20 06:13 Sodium 136 Potassium 3.7 Chloride 104 Carbon Dioxide 24 BUN 17 Creatinine 0.61 Glucose 94 Calcium 8.5 Liver Function 12/14/20 Range/Units 06:13 AST 33 (15-37) U/L ALT 56 (12-78) U/L (1) Pneumonia Laterality: bilateral Lung location: unspecified part of lung Pneumonia type: due to unspecified organism Qualified Code(s): J18.9 - Pneumonia, unspecified organism
--- NOTE | 2020-12-14 16:40 | Discharge Summary ---
Date of Service December 14, 2020 Admission HPI Per Admitting Provider CHIEF COMPLAINT: COVID pneumonia. HISTORY OF PRESENT ILLNESS: This is a 35-year-old female with past medical history significant for chronic rhinitis, history of anxiety and depression, currently not taking any medication, presents with COVID symptoms. Patient's significant other was tested COVID positive and she started having symptoms last Monday with headache, cough, shortness of breath, on and off fevers and she had few episodes of diarrhea. Today she was checking her pulse ox at home and her oxygen was ranging from 83-89% when she decided to come to the ER. In the ER, she was saturating 88% on room air, on 2 liters she was saturating 94%, currently resting comfortably. Has cough. Denies any chest pain, no blurred visions, some ear discomfort. She has some runny nose. Appetite is very poor. No difficulty swallowing. Was nauseous. No abdominal pain. No rash. No swelling in the legs. Admission Exam Per Admitting Provider PHYSICAL EXAMINATION: GENERAL: The patient is of moderate build, not in acute distress. VITAL SIGNS: Temperature T-max 37.8, pulse 101, respiratory rate 24, blood pressure 135/83, oxygen 88% on room air, 94% on 2 liters. HEENT: Pupils equal, round and reactive to light. Oral mucosa moist. NECK: No JVD. No neck masses seen. CARDIOVASCULAR: S1 and S2 heard. Regular rate and rhythm. No murmur, no gallop. RESPIRATORY SYSTEM: Normal AP diameter. No accessory muscle use. No wheezing, no crackles. ABDOMEN: Soft, bowel sounds present, nontender, no distention. CENTRAL NERVOUS SYSTEM: Cranial nerves II-XII grossly intact, nonfocal. EXTREMITIES: No edema, no erythema. Principal Diagnosis COVID-19 infection Hypoxia Discharge Data Allergies Allergy/AdvReac Type Severity Reaction Status Date / Time NONE Allergy Unknown Uncoded 12/11/20 07:49 Consultations 12/10/20 18:56 ED Decision to Admit Stat Hospital Course (1) COVID-19: COVID-19 pneumonia Hypoxia Chest x-ray:Patchy bilateral airspace opacities. This likely represents a viral pneumonia. Did not receive any Covid vaccine Continue Dexamethasone and remdesivir course Day #5 Saturating 94% on 1 L of nasal cannula Continue pulmonary hygiene Lasix PRN 2 step: Did not qualify for oxygen (2) Pneumonia: Management as above Total Time Total Time Spent Total Time Spent (In Minutes): 40 minutes Discharge Plan Discharge Items Patient Disposition: Home - Self-Care Reason For Visit: SOB Discharge Diagnosis: COVID-19 infection Hypoxia Activity: Per Instructions section Exercise/Sports: Wait until after follow-up appointment Non-emergency contact: Primary Care Provider Call non-emergency contact if: you have any medication questions, your symptoms worsen, your pain is concerning for you and you have a fever Follow-up/Referrals: Dorian Jimenez MD [Primary Care Provider] - (Date & Time 12/17/2020 2:40 PM Provider Deshaun Barber MD [facility] PLEASE NOTE THAT THIS IS A TELEHEALTH APPOINTMENT. PLEASE FOLLOW THE INSTRUCTIONS PROVIDED IN YOUR EMAIL. IF YOU HAVE ANY QUESTIONS REGARDING THIS APPOINTMENT, PLEASE CALL ) Diet: Heart Healthy Addtl Attending Provider Instructions: Follow-up with your primary care physician Dr. Jimenez in 1 week as advised Seek immediate medical attention if your symptoms reoccur or worsen Please take all medications as instructed on discharge list below. Please call if you have any questions or problems. You can reach a [facility] hospitalist on duty at [facility] 24 hours a day by calling [phone] Home Isolation COVID-19 Instructions The following information about Home Isolation is from the CDC Website: https://www.cdc.gov/coronavirus/2019-ncov/hcp/borwgzdz-njkauel-ofkyuq.html Stay home except to get medical care People who are mildly ill with COVID-19 are able to isolate at home during their illness. You should restrict activities outside your home, except for getting medical care. Do not go to work, school, or public areas. Avoid using public transportation, ride-sharing, or taxis. Separate yourself from other people and animals in your home People: As much as possible, you should stay in a specific room and away from other people in your home. Also, you should use a separate bathroom, if available. Animals: You should restrict contact with pets and other animals while you are sick with COVID-19, just like you would around other people. Although there have not been reports of pets or other animals becoming sick with COVID-19, it is still recommended that people sick with COVID-19 limit contact with animals until more information is known about the virus. When possible, have another member of your household care for your animals while you are sick. If you are sick with COVID-19, avoid contact with your pet, including petting, snuggling, being kissed or licked, and sharing food. If you must care for your pet or be around animals while you are sick, wash your hands before and after you interact with pets and wear a face mask. Call ahead before visiting your doctor If you have a medical appointment, call the healthcare provider and tell them that you have or may have COVID-19. This will help the healthcare providers office take steps to keep other people from getting infected or exposed. Wear a face mask You should wear a face mask when you are around other people (e.g., sharing a room or vehicle) or pets and before you enter a healthcare providers office. If you are not able to wear a face mask (for example, because it causes trouble breathing), then people who live with you should not stay in the same room with you, or they should wear a face mask if they enter your room. Cover your coughs and sneezes Cover your mouth and nose with a tissue when you cough or sneeze. Throw used tissues in a lined trash can. Immediately wash your hands with soap and water for at least 20 seconds or, if soap and water are not available, clean your hands with an alcohol-based hand power and recovery shift engineer that contains at least 60% alcohol. Clean your hands often Wash your hands often with soap and water for at least 20 seconds, especially after blowing your nose, coughing, or sneezing; going to the bathroom; and before eating or preparing food. If soap and water are not readily available, use an alcohol-based hand power and recovery shift engineer with at least 60% alcohol, covering all surfaces of your hands and rubbing them together until they feel dry. Soap and water are the best option if hands are visibly dirty. Avoid touching your eyes, nose, and mouth with unwashed hands. Avoid sharing personal household items You should not share dishes, drinking glasses, cups, eating utensils, towels, or bedding with other people or pets in your home. After using these items, they should be washed thoroughly with soap and water. Clean all high-touch surfaces everyday High touch surfaces include counters, tabletops, doorknobs, bathroom fixtures, toilets, phones, keyboards, tablets, and bedside tables. Also, clean any surfaces that may have blood, stool, or body fluids on them. Use a household cleaning spray or wipe, according to the label instructions. Labels contain instructions for safe and effective use of the cleaning product including precautions you should take when applying the product, such as wearing gloves and making sure you have good ventilation during use of the product. Monitor your symptoms Seek prompt medical attention if your illness is worsening (e.g., difficulty breathing).Beforeseeking care, call your healthcare provider and tell them that you have, or are being evaluated for, COVID-19. Put on a face mask before you enter the facility. These steps will help the healthcare providers office to keep other people in the office or waiting room from getting infected or exposed. Ask your healthcare provider to call the local or state health department. Persons who are placed under active monitoring or facilitated self- monitoring should follow instructions provided by their local health department or occupational health professionals, as appropriate. When working with your local health department check their available hours. If you have a medical emergency and need to call 911, notify the dispatch personnel that you have, or are being evaluated for COVID-19. If possible, put on a face mask before emergency medical services arrive. Discontinuing home isolation Patients with confirmed COVID-19 should remain under home isolation precautions until the risk of secondary transmission to others is thought to be low. The decision to discontinue home isolation precautions should be made on a lqro-lp-lsro basis, in consultation with healthcare providers and state and local health departments. Coronavirus disease 2019 (COVID-19) is a virus that causes a respiratory illness. It is caused by a coronavirus called 2019 novel coronavirus (2019- nCoV). There are many types of coronavirus. Coronaviruses are a very common cause of bronchitis. They may sometimes cause lung infection(pneumonia). Symptoms can range from mild to severe respiratory illness. These viruses are also foundin some animals. COVID-19 was first found in people in [facility], in late 2019. In 2020, several cases of COVID-19 have been confirmed in the [place] Public health officials are working to find the source. How the virus spreads is not yet fully known. It may be spread through droplets of fluid that a person coughs or sneezes into the air. It may be spread if you touch a surface with virus on it, such as a handle or object, and then touch your mouth. What are the symptoms of COVID-19? Some people have no symptoms or mild symptoms. Symptoms may appear 2 to 14 days after contact with the virus. Symptoms can include: Fever Coughing Trouble breathing What are possible complications from COVID-19? In many cases, this virus can cause infection (pneumonia) in both lungs. In some cases, this can cause . How is COVID-19 diagnosed? Your healthcare provider will ask about your symptoms. He or she will also ask about your recent travel and contact with sick people. Testing for the virus is only done through the [facility]. If yourhealthcare provider thinks you may have COVID- 19, he or she will work with your local health department and the CDC on testing. Follow all instructions from your healthcare provider. COVID-19 is diagnosed by: Nasal and throat swab. A cotton-tipped swab is wiped inside your nose or throat. This is done to check for viruses in your nasal mucus. Sputum culture. A small sample of mucus coughed from your lungs (sputum) is collected if you have a cough. It is checked for the virus. How is COVID-19 treated? There is currently no medicine to treat the virus. Treatment is done to help your body while it fights the virus. This is known as supportive care. Supportive care may include: Pain medicine. These include acetaminophen and ibuprofen. They are used to help ease pain and reduce fever. Bed rest. This helps your body fight the illness. For severe illness, you may need to stay in the hospital. Care during severe illness may include: IV (intravenous) fluids.These are given through a vein to help keep your body hydrated. Oxygen. Supplemental oxygen or ventilation with a breathing machine (ventilator) may be given. This is done to keep enough oxygen in your body. Are you at risk for COVID-19? If youve been to a place where people have been sick with this virus, you are at risk for infection. You are at risk if you: Recently traveled to an affected area Had contact with a sick person who recently traveled to this area Had contact with a person who was diagnosed with COVID-19 How can COVID-19 be prevented? There is no vaccine yet. The best prevention is to not have contact with the virus. The CDC advises that people should not travel to areas where there are COVID-19 outbreaks right now for any reason that is not urgent. To help prevent spreading the infection, wash your hands often, or use an alcohol-basedhand power and recovery shift engineer. If you are in an area with COVID-19: Wash your hands often. Or use an alcohol-based hand power and recovery shift engineer often. Only touch your eyes, nose, or mouth with clean hands. Dont have contact with people who are sick. Follow local instructions about being in public. For example, you may be told to not use public transport for a period of time. Stay away from markets that have live or animals. Wash your hands after touching any animals. Don't touch animals that may be sick. Dont share eating or drinking tools with sick people. Dont kiss someone who is sick. Clean surfaces often with disinfectant. If you were in an area with COVID-19 in the last 14 days: Call your healthcare provider. He or she can talk with local health staff to see what action may be needed. Follow all instructions from your provider. Take your temperature every morning and evening for at least 14 days. This is to check for fever. Keep a record of the readings. Keep watch for symptoms of the virus. Tell your provider right away if you h ave symptoms. If you were in an area with COVID-19 and have a fever or other symptoms: Dont panic. Keep in mind that other illnesses can cause similar symptoms. Stay away from work, school, and public places. Limit physical contact with family members. Don't kiss anyone or share eating or drinking utensils. Clean surfaces you touch with disinfectant. This is to help prevent the virus from s preading. Call your healthcare provider. Explain that you have been exposed to COVID-19 and have symptoms. Do this before going to any hospital. Wait for instructions. Keep in mind that healthcare staff may wear protective equipment such as masks, gowns, gloves, and eye protection. You may be put in a separate room. This is to prevent the possible virus from spreading. Tell the healthcare staff about recent travel. This includes local travel on public transport. Staff may need to find other people you have been in contact with. Follow all instructions the healthcare staff give you. If you have been diagnosed with COVID-19 Follow all instructions from your healthcare provider. Dont leave your home, except to get medical care. Call your healthcare providers office before going. They can prepare and give you instructions. This will help prevent the virus from spreading. Dont go to work, school, or public areas. Dont use public transport or taxis. Stay away from other people in your home. Have them wear face masks around you. Dont share household items or food. Wear a face mask if you can. This includes at home or in a medical facility. Cover your face with a tissue when you cough or sneeze. Throw the tissue away. Wash your hands. Wash your hands often. Caregivers should: Follow all instructions from healthcare staff. Wear a face mask and protective clothing as advised. Wash hands often. Keep track of the sick persons symptoms. Clean surfaces, fabrics, and laundry thoroughly. Keep other people away from the sick person. When to call your healthcare provider Call your healthcare provider: If youve recently traveled and have symptoms If you have been diagnosed with COVID-19 and your symptoms are worse To learn more To find out more about COVID-19, visit the CDC website at www.cdc.gov/coronavirus/2019-ncov/index.html. [employer]. [address] [place] [address]. All rights reserved. This information is not intended as a substitute for professional medical care. Always follow your healthcare professional's instructions. This information has been adapted from [employer] Pending Studies at Discharge: No Stand-Alone Forms: My [facility] [employer], Smoking Cessation Medications and DC Order Prescriptions: No Action No Known Home Medications RF: 0 Discharge Orders: Discharge Order (Routine); Ordered 12/14/20 Ordered By: Alfred Rae/Other Patient Handouts: Symptoms of COVID-19 Infection, COVID-19 Home Care Admission Data Admit Date/Time: 12/10/20 21:34 Attending Provider: Alfred Crockett Admit Provider: Pascual Almeida Primary Care Provider: Dorian Jimenez Other Providers: Pascual Almeida ; Khloe Rodriguez Other Interventions: Discharge Summary Assessment (RN) Last Done: 12/14/20 13:34
== END 2020-12-14 14:52 | disposition home or self-care (01) | DRG 177 ==
LOC: ED 17:01 → 2N 21:34 → SUATTDRO 21:34 → MERGE 21:34 → 2N 22:46